=== PATIENT | male | born 1990 | race Caucasian/White ===

== ENCOUNTER 2016-06-10 03:59 | Observation (INO) | payer SELFPAY ==
[~2016-06-10] VITALS: Ht 172.7 cm; Wt 95.0 kg
[2016-06-10 04:01] VITALS: BP 135/82; PULSE 103; RESP 16; TEMP 98.8; O2SAT 98
[2016-06-10] MEDS ORDERED: SODIUM CHLOR 0.9% 1000 ML INJ 1,000 ML IV SCH (04:26)
[2016-06-10] MEDS ORDERED: SODIUM CHLORIDE 0.9% FLUSH 5 ML FLUSH IVF PRN ×2 (04:30→14:15)
[2016-06-10] MEDS ORDERED: ONDANSETRON HCL 4 MG/2 ML VIAL IVP ONE (04:30)
[2016-06-10] MEDS ORDERED: DIATRIZOATE MEGLUM/DIATRIZOATE SOD 9 ML CUP ONE (04:44)
[2016-06-10 04:58] LABS: AUTOMATED NEUTROPHIL # 11.6 TH/MM3 (1.8-7.7); BASOPHIL # 0.1 TH/MM3 (0-0.2); BASOPHIL % 0.4 % (0.0-2.0); EOSINOPHIL # 0.3 TH/MM3 (0-0.4); EOSINOPHIL % 1.9 % (0.0-4.0); HEMATOCRIT 49.5 % (39.0-51.0); HEMO FLAGS DIFF FINAL; LYMPH % 16.2 % (9.0-44.0); LYMPHOCYTE # 2.6 TH/MM3 (1.0-4.8); MEAN CELL VOLUME 82.6 FL (80.0-100.0); MEAN CORPUSCULAR HEMOGLOBIN 27.3 PG (27.0-34.0); MONO % 8.3 % (0.0-8.0); NEUT % 73.2 % (16.0-70.0); PLATELET COUNT 144 TH/MM3 (150-450); RED BLOOD COUNT 5.99 MIL/MM3 (4.50-5.90); RED CELL DISTRIBUTION WIDTH 14.3 % (11.6-17.2); WHITE BLOOD COUNT 15.9 TH/MM3 (4.0-11.0)
--- NOTE | 2016-06-10 05:21 | PD ---
HPI Chief Complaint: Abdominal Pain Time Seen by Provider: 04:26 Travel History International Travel<30 days: No Contact w/Intl Traveler<30days: No Traveled to known affect area: No History of Present Illness HPI The patient is a 25 year old male who presents to the [facility] emergency department with a history of abdominal pain around the umbilicus that began on Wednesday. The patient reports that the pain has been constant although gradually worsening with time. He reports the character or of the pain is dull. The patient reports that the pain has moved from the periumbilical area down into the right lower quadrant of the abdomen. The patient reports that he's had constipation associated with this. He last moved his bowels normally on Wednesday. He did have a small bowel movement today. He denies having any blood in his stool or black or tarry stools. He denies having any nausea or vomiting. The patient reports that he's had a diminished appetite for the last 2 days. He denies having any diarrhea. The patient denies any recent fevers, cough, congestion, neck pain, chest pain, shortness of breath, urinary symptoms , or neurologic symptoms. FOR[facility]LY [facility] Past Medical History Narrative Medical The patient's past medical history is significant for asthma. Asthma: Yes Diminished Hearing: No Tetanus Vaccination: Unknown Influenza Vaccination: No Past Surgical History Narrative Surgical The patient's past surgical history is reportedly none. Surgical History: No Previous Surgery Social History Alcohol Use: Yes ([facility]) Tobacco Use: No Substance Use: No Allergies-Medications (Allergen,Severity, Reaction): Coded Allergies: No Known Allergies (Unverified , 06/10/16) Reported Meds & Prescriptions Reported Meds & Active Scripts Active No Active Prescriptions or Reported Medications Review of Systems Except as stated in HPI: all other systems reviewed are Neg General / Constitutional: No: Fever Eyes: No: Visual changes HENT: No: Headaches Cardiovascular: No: Chest Pain or Discomfort Respiratory: No: Shortness of Breath Gastrointestinal: Positive: Abdominal Pain, Constipation, Changes in Bowel Habits, Loss of Appetite, No: Indigestion Genitourinary: No: Dysuria Musculoskeletal: No: Pain Skin: No Rash Neurologic: No: Weakness Psychiatric: No: Depression Endocrine: No: Polydipsia Hematologic/Lymphatic: No: Easy Bruising Physical Exam Narrative General: The patient is a well-developed well-nourished male in no acute distress. Head and Neck exam: Head is normocephalic atraumatic. Eyes: EOMI, pupils are equal round and reactive to light. Nose: Midline septum with pink mucous membranes Mouth: Dentition unremarkable. Moist mucus membranes. Posterior oropharynx is not erythematous. No tonsillar hypertrophy. Uvula midline. Airway patent. Neck: No palpable lymphadenopathy. No nuchal rigidity. No thyromegaly. Cardiovascular: Regular rate and rhythm without murmurs, gallops, or rubs. Lungs: Clear to auscultation bilaterally. No wheezes, rhonchi, or rales. Abdomen: Soft, with tenderness on palpation in the right upper and lower quadrant of the abdomen, however worse on the right lower quadrant. The patient has a positive psoas sign. The patient has tenderness on heel tapping, noted in his abdomen. The patient has rebound noted. Negative Hertel sign. Decreased bowel sounds are audible. Extremities: No clubbing, cyanosis, or edema. No calf tenderness on palpation. Back: No spinous process tenderness to palpation. No costovertebral angle tenderness to palpation. Neurologic Exam: Grossly nonfocal. Skin Exam: No rash noted. Intact skin that is warm and dry. Data Data Last Documented VS Vital Signs Date Time Temp Pulse Resp B/P Pulse Ox O2 Delivery O2 Flow Rate FiO2 06/10/16 06:13 16 06/10/16 06:00 98.8 106 96 Room Air 06/10/16 04:01 135/82 Orders Complete Blood Count With Diff (06/10/16 04:26) Comprehensive Metabolic Panel (06/10/16 04:26) Lipase (06/10/16 04:26) Urinalysis - C+S If Indicated (06/10/16 04:26) Ct Abd/Pel W Iv Contrast(Rout) (06/10/16 04:26) Iv Access Insert/Monitor (06/10/16 04:26) Ecg Monitoring (06/10/16 04:26) Oximetry (06/10/16 04:26) Ondansetron Inj (Zofran Inj) (06/10/16 04:30) Sodium Chlor 0.9% 1000 Ml Inj (Ns 1000 M (06/10/16 04:26) Sodium Chloride 0.9% Flush (Ns Flush) (06/10/16 04:30) C-Reactive Protein (Crp) (06/10/16 04:26) Oral Contrast - Adult (06/10/16 04:30) Diatrizoate Liq ( Gastroview Liq) (06/10/16 04:44) Morphine Inj (Morphine Inj) (06/10/16 05:30) Iohexol 350 Inj (Omnipaque 350 Inj) (06/10/16 05:54) Sodium Chlor 0.9% 1000 Ml Inj (Ns 1000 M (06/10/16 06:15) Piperacil-Tazo 3.375 Gm Premix (Zosyn 3. (06/10/16 06:15) Admit Order (Ed Use Only) (06/10/16 06:46) Labs Laboratory Tests Test 06/10/16 04:31 White Blood Count 15.9 TH/MM3 Red Blood Count 5.99 MIL/MM3 Hemoglobin 16.3 GM/DL Hematocrit 49.5 % Mean Corpuscular Volume 82.6 FL Mean Corpuscular Hemoglobin 27.3 PG Mean Corpuscular Hemoglobin 33.0 % Concent Red Cell Distribution Width 14.3 % Platelet Count 144 TH/MM3 Mean Platelet Volume 10.2 FL Neutrophils (%) (Auto) 73.2 % Lymphocytes (%) (Auto) 16.2 % Monocytes (%) (Auto) 8.3 % Eosinophils (%) (Auto) 1.9 % Basophils (%) (Auto) 0.4 % Neutrophils # (Auto) 11.6 TH/MM3 Lymphocytes # (Auto) 2.6 TH/MM3 Monocytes # (Auto) 1.3 TH/MM3 Eosinophils # (Auto) 0.3 TH/MM3 Basophils # (Auto) 0.1 TH/MM3 CBC Comment DIFF FINAL Differential Comment Sodium Level 139 MEQ/L Potassium Level 3.5 MEQ/L Chloride Level 102 MEQ/L Carbon Dioxide Level 29.4 MEQ/L Anion Gap 8 MEQ/L Blood Urea Nitrogen 14 MG/DL Creatinine 1.10 MG/DL Estimat Glomerular Filtration 82 ML/MIN Rate Random Glucose 84 MG/DL Calcium Level 8.8 MG/DL Total Bilirubin 1.5 MG/DL Aspartate Amino Transf 9 U/L (AST/SGOT) Alanine Aminotransferase 16 U/L (ALT/SGPT) Alkaline Phosphatase 55 U/L C-Reactive Protein 0.76 MG/DL Total Protein 7.5 GM/DL Albumin 4.4 GM/DL Lipase 123 U/L MDM Medical Decision Making Medical Screen Exam Complete: Yes Emergency Medical Condition: Yes Medical Record Reviewed: Yes Interpretation(s) Last Impressions Abdomen/Pelvis CT 06/10/16 0426 Signed Impressions: Service Date/Time: Friday, June 10, 2016 05:46 - CONCLUSION: 1. Mild acute appendicitis without abscess, obstruction, free fluid or free air. Ross Langford MD Differential Diagnosis Appendicitis, versus diverticulitis, versus colitis, versus kidney stone, versus pyelonephritis Narrative Course During the course of the patients emergency department visit, the patients history, examination, and differential diagnosis were reviewed with the patient. The patient had IV access obtained and blood work sent for analysis. The patient will have a CT scan of the abdomen and pelvis done. The patient was provided normal saline 1 L IV fluid bolus, Zofran 4 mg IV for nausea, morphine 4 mg IV for pain. After the patient's white count came back elevated at 15.9, the patient was given Zosyn 3.375 g IV. The patients laboratory studies were reviewed and remarkable for white count of 15.9, hemoglobin 16.3, platelets 144, neutrophils 73.2, CMP is remarkable for GFR of 82, total bilirubin 1.5, AST 9, C-reactive protein 0.76, lipase 123. Radiology studies were reviewed and remarkable for a CT scan of the abdomen and pelvis that shows mild appendicitis. A call was placed out to the general surgeon. I spoke to Dr. Austin regarding this patient's case. He did agree to admit the patient for further evaluation and treatment at this time. He plans to take the patient to the OR later today. Physician Communication Physician Communication The patient's case is discussed with Dr. Austin who did agree to admit the patient for further evaluation and treatment at this time. Diagnosis Primary Impression: Acute appendicitis Qualified Code: K35.80 - Acute appendicitis, unspecified acute appendicitis type Admitting Information Admitting Physician Requests: Admit Scripts No Active Prescriptions or Reported Meds Ashley Veronica MD Jun 10, 2016 05:21
[2016-06-10] MEDS ORDERED: MORPHINE SULFATE 4 MG/ML INJ IV PUSH ONE ×2 (05:30→08:00)
[2016-06-10 05:32] LABS: ANION GAP 8 MEQ/L (5-15); AST (GOT) 9 U/L (15-37); BICARBONATE 29.4 MEQ/L (21.0-32.0); BLOOD UREA NITROGEN 14 MG/DL (7-18); CHLORIDE 102 MEQ/L (98-107); GLOMERULAR FILTRATION RATE 82 ML/MIN (>89); POTASSIUM 3.5 MEQ/L (3.5-5.1); SODIUM (NA) 139 MEQ/L (136-145)
[2016-06-10 05:35] LABS: ALKALINE PHOSPHATASE 55 U/L (45-117); ALT (GPT) 16 U/L (12-78); TOTAL BILIRUBIN ADULT 1.5 MG/DL (0.2-1.0)
[2016-06-10] MEDS ORDERED: IOHEXOL 350 MG/ML 10 ML VIAL (for RAD DIAG) IV ONE (05:54)
[2016-06-10 06:00] VITALS: PULSE 106; RESP 18; TEMP 98.8; O2SAT 96
[2016-06-10] MEDS ORDERED: PIPERACIL-TAZO 3.375 GM PREMIX 50 ML IV ONE (06:15)
[2016-06-10] MEDS ORDERED: SODIUM CHLOR 0.9% 1000 ML INJ 1,000 ML IV ONE (06:15)
--- NOTE | 2016-06-10 06:30 | RADRPT ---
EXAM DATE/TIME: 06/10/2016 05:46 [place] COMPARISON: No previous studies available for comparison. INDICATIONS : Right lower quadrant pain. IV CONTRAST: 90 cc Omnipaque 350 (iohexol) IV ORAL CONTRAST: Partial prescribed oral contrast ingested. RADIATION DOSE: 12.92 CTDIvol (mGy) MEDICAL HISTORY : Asthma SURGICAL HISTORY : None. ENCOUNTER: Initial ACUITY: 1 day PAIN SCALE: 8/10 LOCATION: Right lower quadrant TECHNIQUE: Volumetric scanning of the abdomen and pelvis was performed. Using automated exposure control and ad justment of the mA and/or kV according to patient size, radiation dose was kept as low as reasonably achievable to obtain optimal diagnostic quality images. FINDINGS: The appendix is distended up to 15 mm in diameter and there are mild periappendiceal inflammatory juan carlos nges characteristic of a mild acute appendicitis. There is still some air present within the distal a ppendix. No abscess, obstruction, free fluid or free air. Lung bases clear. No acute findings in the liver, spleen, adrenals, kidneys or pancreas. Small hiatal hernia. No gallstones or biliary ductal dilatation. No acute bony abnormality. CONCLUSION: 1. Mild acute appendicitis without abscess, obstruction, free fluid or free air. Ross Langford MD on June 10, 2016 at 6:25 Board Certified Radiologist. This report was verified electronically.
[2016-06-10 08:00] VITALS: BP 129/77; PULSE 94; RESP 17; TEMP 98.7; O2SAT 98
[2016-06-10] MEDS ORDERED: ONDANSETRON HCL 4 MG/2 ML VIAL IV ONE (08:15)
[2016-06-10 08:25] LABS: BLOOD, URINE NEG (NEG); GLUCOSE,URINE NEG (NEG); KETONE, URINE 40 mg/dL (NEG); NITRITE,URINE NEG (NEG); URINE COLOR LIGHT-YELLOW (YELLW/STRAW)
[2016-06-10 08:27] LABS: COMMENT (UR) CULT NOT INDICATED; CULTURE IF INDICATED CULT NOT INDICATED
--- NOTE | 2016-06-10 08:45 | HHI.HP ---
HPI Service General Surgery Primary Care Physician No Primary Care Physician Admission Diagnosis Acute Appendicitis Chief Complaint: Abdominal pain History of Present Illness This is a 25 yo M who developed periumbilical abdominal pain on Wednesday which became more diffuse and severe and then yesterday became more localized in the right lower abdomen. He's had some constipation and anorexia, no nausea or vomiting. Review of Systems Constitutional: DENIES: Fever, Chills Eyes: DENIES: Eye inflammation, Eye pain Ears, nose, mouth, throat: DENIES: Sinus Pain, Toothache Respiratory: DENIES: Wheezing, Shortness of breath Cardiovascular: DENIES: Chest pain, Palpitations Gastrointestinal: COMPLAINS OF: Abdominal pain, Constipation Musculoskeletal: DENIES: Muscle aches, Stiffness Integumentary: DENIES: Pruritus, Rash Past Family Social History Past Medical History Asthma Past Surgical History None Reported Medications none Allergies: Coded Allergies: No Known Allergies (Unverified , 06/10/16) Active Ordered Medications Current Medications Medications (Trade) Dose Ordered Sig/Haris Route Start Time Stop Time Status Last Admin (NS Flush) 2 ml UNSCH PRN IVF 06/10/16 04:30 Family History noncontributory Social History No tobacco or drug use. Occ ETOH use. Physical Exam Vital Signs Vital Signs Date Time Temp Pulse Resp B/P Pulse Ox O2 Delivery O2 Flow Rate FiO2 06/10/16 06:13 16 06/10/16 06:00 98.8 106 18 96 Room Air 06/10/16 04:06 16 06/10/16 04:01 98.8 103 16 135/82 98 Physical Exam General: NAD, AAO. Appears mildly ill HEAD: NCAT ENT: PERRL, no scleral icterus LUNGS: CTAB, no rhonchi or wheezing CV: RRR ABD: soft, + rebound in RLQ, + Rovsing's sign EXT: no cyanosis or edema Laboratory Laboratory Tests Test 06/10/16 06/10/16 04:31 08:18 White Blood Count 15.9 Red Blood Count 5.99 Hemoglobin 16.3 Hematocrit 49.5 Mean Corpuscular Volume 82.6 Mean Corpuscular Hemoglobin 27.3 Mean Corpuscular Hemoglobin 33.0 Concent Red Cell Distribution Width 14.3 Platelet Count 144 Mean Platelet Volume 10.2 Neutrophils (%) (Auto) 73.2 Lymphocytes (%) (Auto) 16.2 Monocytes (%) (Auto) 8.3 Eosinophils (%) (Auto) 1.9 Basophils (%) (Auto) 0.4 Neutrophils # (Auto) 11.6 Lymphocytes # (Auto) 2.6 Monocytes # (Auto) 1.3 Eosinophils # (Auto) 0.3 Basophils # (Auto) 0.1 CBC Comment DIFF FINAL Differential Comment Sodium Level 139 Potassium Level 3.5 Chloride Level 102 Carbon Dioxide Level 29.4 Anion Gap 8 Blood Urea Nitrogen 14 Creatinine 1.10 Estimat Glomerular Filtration 82 Rate Random Glucose 84 Calcium Level 8.8 Total Bilirubin 1.5 Aspartate Amino Transf 9 (AST/SGOT) Alanine Aminotransferase 16 (ALT/SGPT) Alkaline Phosphatase 55 C-Reactive Protein 0.76 Total Protein 7.5 Albumin 4.4 Lipase 123 Urine Color LIGHT-YELLOW Urine Turbidity CLEAR Urine pH 7.0 Urine Specific Freeman 1.039 Urine Protein NEG Urine Glucose (UA) NEG Urine Ketones 40 Urine Occult Blood NEG Urine Nitrite NEG Urine Bilirubin NEG Urine Urobilinogen LESS THAN 2.0 Urine Leukocyte Esterase NEG Urine RBC 1 Urine WBC LESS THAN 1 Microscopic Urinalysis Comment CULT NOT INDICATED Result Diagram: 06/10/1643006/10/16430 Imaging Last Impressions Abdomen/Pelvis CT 06/10/16425 Signed Impressions: Service Date/Time: Friday, June 10, 2016 05:46 - CONCLUSION: 1. Mild acute appendicitis without abscess, obstruction, free fluid or free air. Ross Langford MD Assessment and Plan Assessment and Plan This is a 25 yo M with classic presentation of acute appendicitis, confirmed with CT a/p. Plan to proceed this am to OR for laparoscopic, possible open, appendectomy. I discussed details, risks, and benefits with the patient and his father and he desires to proceed. He has already received Zosyn. NormanAdriel MD Jun 10, 2016 08:45
[2016-06-10] MEDS ORDERED: PROPOFOL 200 MG/20 ML AMP IV ONE (08:53)
[2016-06-10] MEDS ORDERED: NEOSTIGMINE 3 MG/3 ML SYR IV ONE (08:53)
[2016-06-10] MEDS ORDERED: ONDANSETRON HCL 4 MG/2 ML VIAL IV PUSH ONE (08:53)
[2016-06-10 10:21] VITALS: BP 131/78; PULSE 89; RESP 16; O2SAT 98
[2016-06-10 11:51] VITALS: BP 128/77
[2016-06-10] MEDS ORDERED: DEXAMETHASONE SOD PHOS 4 MG/ML VIAL ONE (13:17)
[2016-06-10] MEDS ORDERED: FAMOTIDINE 20 MG/2 ML VIAL ONE (13:17)
[2016-06-10] MEDS ORDERED: MIDAZOLAM HCL 2 MG/2 ML VIAL ONE (13:17)
[2016-06-10] MEDS ORDERED: BUPIVACAINE/EPINEPHRINE 0.5% PF 30 ML VIAL INFIL ONE (13:47)
[2016-06-10] MEDS ORDERED: ACETAMINOPHEN 1000 MG/100 ML VIAL IV ONE (13:51)
[2016-06-10] MEDS ORDERED: DICLOFENAC SODIUM 37.5 MG/ML VIAL IV PUSH ONE (13:52)
[2016-06-10] MEDS ORDERED: PIPERACIL-TAZO 3.375 GM PREMIX 50 ML IV SCH (14:00)
[2016-06-10] MEDS ORDERED: oxyCODONE/ACETAMINOPHEN 5 MG/325 MG TAB PO PRN (14:15)
[2016-06-10] MEDS ORDERED: oxyCODONE/ACETAMINOPHEN 10 MG/325 MG TAB PO PRN (14:15)
[2016-06-10] MEDS ORDERED: Post-op Orders (for Pharmacy) MISC XX ONE (14:15)
[2016-06-10] MEDS ORDERED: ONDANSETRON HCL 4 MG/2 ML VIAL IV PRN (14:15)
[2016-06-10] MEDS ORDERED: MORPHINE SULFATE 4 MG/ML INJ IV PRN (14:15)
[2016-06-10] MEDS ORDERED: NALOXONE HCL 0.4 MG/ML AMP IV PRN (14:15)
[2016-06-10] MEDS ORDERED: OXYC1TAB63 PO (14:17)
--- NOTE | 2016-06-10 14:21 | PD.OP ---
cc: Adriel Austin MD Operative Report Date of Surgery: Jun 10, 2016 Preoperative Diagnosis: (1) Acute appendicitis Postoperative Diagnosis: (1) Acute appendicitis Procedure: laparoscopic appendectomy Anesthesia: GETA Surgeon: Adriel Austin Carton Stamper(s): Haim DUTTA Operation and Findings: EBL: 5 cc Complications: None apparent Operative findings: Inflamed and distended appendix with a minimal amount of exudative material. Procedure in detail: The patient was taken to the operating room placed in the supine position with left arm tucked. General endotracheal anesthesia was induced and the abdomen was prepped and draped in usual sterile fashion. Surgical timeout was performed to verify correct patient procedure and site. Perioperative antibiotics were administered as necessary. Local anesthetic was injected in the skin and subcutaneous tissue at the inferior umbilicus and a 5 mm incision made. Using the 5 mm Optiview trocar with laparoscope the abdomen was directly entered. Was then insufflated to 15 mmHg with CO2 gas which the patient tolerated well. The patient was then placed in Trendelenburg position and turned slightly to the left. A 12 mm port was placed under laparoscopic visualization in the suprapubic area and a 5 mm port in the lower midline. Attention was turned to the right lower quadrant and the appendix was distended and inflamed. It was not ruptured. There was a minimal amount of exudative material surrounding it. The mesoappendix was taken down with the Harmonic scalpel. Two #1 PDS Endoloops were placed at the base the appendix and the appendix transected with Harmonic scalpel. It was then removed using an Endo Catch bag. The appendiceal stump was intact with no leakage. The right lower quadrant pelvis were copiously irrigated and there was a small amount of exudative cloudy fluid removed. The fascia at the 12 mm port site was closed with a single 0 Vicryl suture. Skin closed with subcuticular Monocryl as well as Dermabond. The patient tolerated the procedure well was extubated and taken to PACU in stable condition. Adriel Austin MD Jun 10, 2016 14:21
[2016-06-10] MEDS ORDERED: fentaNYL CITRATE 250 MCG/5 ML AMP ONE (14:36)
[2016-06-10] MEDS ORDERED: D5-1/2 NS + KCL 20 MEQ INJ 1,000 ML IV SCH (15:00)
[2016-06-10] MEDS ORDERED: *morphine SULFATE 8 MG/ML PERIprocedure ONLY ONE (15:02)
[2016-06-10 16:21] VITALS: BP 134/64; PULSE 99; RESP 16; TEMP 98.7; O2SAT 96
[2016-06-10] MEDS ORDERED: SODIUM CHLORIDE 0.9% FLUSH 5 ML FLUSH IVF SCH (21:00)
== END 2016-06-10 17:50 | disposition home or self-care (01) ==
LOC: NEPE 03:59 → INTOOBSV 06:47 → NEDA 06:47 → HPAC 11:55
PROVIDERS: ADMIT Surgery; ATTEND Surgery
DX: K35.80 Unspecified acute appendicitis (principal); K59.00 Constipation, unspecified; J45.909 Unspecified asthma, uncomplicated; D72.829 Elevated white blood cell count, unspecified; R63.0 Anorexia
CPT/HCPCS: 00840; 44970; 74177; 80053; 81001; 83690; 85025; 86140; 88304; 96361; 96365; 96375; 99285; G0378; J0131; J1100; J1130; J2250; J2270; J2405; J2543; J2710; J3010; J7030; Q9963; Q9967

== ENCOUNTER 2017-05-11 14:27 | Emergency (ER) | payer SELFPAY ==
[~2017-05-11] VITALS: Ht 171.4 cm; Wt 102.3 kg
[~2017-05-11 14:27] MED LIST: OXYC1TAB63 PO
[2017-05-11] MEDS ORDERED: IOHEXOL 350 MG/ML 10 ML VIAL (for RAD DIAG) IVCONTRAST ONE (14:28)
[2017-05-11 14:29] VITALS: BP 100/60; PULSE 127; RESP 20; TEMP 98.9; O2SAT 98
[2017-05-11 16:01] LABS: BILIRUBIN, URINE NEG (NEG); BLOOD, URINE NEG (NEG); GLUCOSE,URINE NEG (NEG); KETONE, URINE NEG (NEG); MUCUS URINE MOD /lpf (OCC); NITRITE,URINE NEG (NEG); PH, URINE 5.5 (5.0-8.5); SQUAMOUS EPITHELIAL CELL URINE <1 /hpf (0-5); URINE COLOR YELLOW (YELLW/STRAW); URINE LEUKOCYTE ESTERASE NEG (NEG)
[2017-05-11 16:08] LABS: AUTOMATED NEUTROPHIL # 10.6 TH/MM3 (1.8-7.7); BASOPHIL % 0.2 % (0.0-2.0); EOSINOPHIL # 0.1 TH/MM3 (0-0.4); EOSINOPHIL % 1.1 % (0.0-4.0); HEMATOCRIT 48.7 % (39.0-51.0); HEMOGLOBIN 16.5 GM/DL (13.0-17.0); LYMPH % 5.1 % (9.0-44.0); LYMPHOCYTE # 0.6 TH/MM3 (1.0-4.8); MEAN CELL VOLUME 81.6 FL (80.0-100.0); MEAN CORPUSCULAR HEMOGLOBIN 27.7 PG (27.0-34.0); MONO % 5.7 % (0.0-8.0); MONOCYTE # 0.7 TH/MM3 (0-0.9); NEUT % 87.9 % (16.0-70.0); PLATELET COUNT 144 TH/MM3 (150-450); RED BLOOD COUNT 5.97 MIL/MM3 (4.50-5.90); RED CELL DISTRIBUTION WIDTH 13.8 % (11.6-17.2)
[2017-05-11 16:18] LABS: ALKALINE PHOSPHATASE 46 U/L (45-117); TOTAL BILIRUBIN ADULT 1.4 MG/DL (0.2-1.0); TOTAL PROTEIN 7.6 GM/DL (6.4-8.2)
[2017-05-11 16:35] LABS: ALBUMIN 4.3 GM/DL (3.4-5.0); ALT (GPT) 37 U/L (12-78); AST (GOT) 19 U/L (15-37); BICARBONATE 27.4 MEQ/L (21.0-32.0); BLOOD UREA NITROGEN 21 MG/DL (7-18); CALCIUM 8.6 MG/DL (8.5-10.1); CHLORIDE 106 MEQ/L (98-107); CREATININE 1.19 MG/DL (0.60-1.30); GLOMERULAR FILTRATION RATE 74 ML/MIN (>89); GLUCOSE,RANDOM 116 MG/DL (74-106); LIPASE 111 U/L (73-393); SODIUM (NA) 140 MEQ/L (136-145)
--- NOTE | 2017-05-11 17:01 | PD ---
HPI Chief Complaint: Abdominal Pain Time Seen by Provider: 16:47 Travel History International Travel<30 days: No Contact w/Intl Traveler<30days: No Traveled to known affect area: No History of Present Illness HPI 26 years old male complaining abdominal pain, nausea vomiting diarrhea. Patient states that the symptoms started this morning. Patient denies any headache. Patient denies any chest pain or shortness of breath. Patient states the pain cramping pain localized upper abdomen. Patient denies any pain radiation. Patient denies any dysuria or frequency. Patient status post appendectomy in the past. Patient denies fever chills. PFSH Past Medical History Asthma: Yes Diminished Hearing: No Immunizations Current: Yes Tetanus Vaccination: Unknown Influenza Vaccination: No Past Surgical History Appendectomy: Yes Social History Alcohol Use: Yes (OCC) Tobacco Use: No Substance Use: No Allergies-Medications (Allergen,Severity, Reaction): Coded Allergies: No Known Allergies (Unverified Adverse Reaction, Unknown, 05/11/17) Reported Meds & Prescriptions Reported Meds & Active Scripts Active No Active Prescriptions or Reported Medications Review of Systems General / Constitutional: No: Fever Eyes: No: Visual changes HENT: No: Headaches Cardiovascular: No: Chest Pain or Discomfort Respiratory: No: Shortness of Breath Gastrointestinal: Positive: Nausea, Vomiting, Diarrhea, Abdominal Pain Genitourinary: No: Dysuria Musculoskeletal: No: Pain Skin: No Rash Neurologic: No: Weakness Psychiatric: No: Depression Endocrine: No: Polydipsia Hematologic/Lymphatic: No: Easy Bruising Physical Exam Narrative GENERAL: Well-nourished, well-developed patient. SKIN: Focused skin assessment warm/dry. HEAD: Normocephalic. EYES: No scleral icterus. No injection or drainage. NECK: Supple, trachea midline. No JVD or lymphadenopathy. CARDIOVASCULAR: Regular rate and rhythm without murmurs, gallops, or rubs. RESPIRATORY: Breath sounds equal bilaterally. No accessory muscle use. GASTROINTESTINAL: Abdomen soft, nondistended. Mild tenderness on palpation epigastric and upper abdomen. No rebound tenderness. No mass. MUSCULOSKELETAL: No cyanosis, or edema. BACK: Nontender without obvious deformity. No CVA tenderness. Neurologic exam normal. Data Data Last Documented VS Vital Signs Date Time Temp Pulse Resp B/P (MAP) Pulse Ox O2 Delivery O2 Flow Rate FiO2 05/11/17 14:29 98.9 127 20 100/60 (73) 98 Orders Orders Complete Blood Count With Diff (05/11/17 14:47) Comprehensive Metabolic Panel (05/11/17 14:47) Lipase (05/11/17 14:47) Urinalysis - C+S If Indicated (05/11/17 14:47) Ct Abd/Pel W Iv Contrast(Rout) (05/11/17 16:55) Labs Laboratory Tests Test 05/11/17 15:43 White Blood Count 12.0 TH/MM3 Red Blood Count 5.97 MIL/MM3 Hemoglobin 16.5 GM/DL Hematocrit 48.7 % Mean Corpuscular Volume 81.6 FL Mean Corpuscular Hemoglobin 27.7 PG Mean Corpuscular Hemoglobin Concent 34.0 % Red Cell Distribution Width 13.8 % Platelet Count 144 TH/MM3 Mean Platelet Volume 10.0 FL Neutrophils (%) (Auto) 87.9 % Lymphocytes (%) (Auto) 5.1 % Monocytes (%) (Auto) 5.7 % Eosinophils (%) (Auto) 1.1 % Basophils (%) (Auto) 0.2 % Neutrophils # (Auto) 10.6 TH/MM3 Lymphocytes # (Auto) 0.6 TH/MM3 Monocytes # (Auto) 0.7 TH/MM3 Eosinophils # (Auto) 0.1 TH/MM3 Basophils # (Auto) 0.0 TH/MM3 CBC Comment DIFF FINAL Differential Comment Urine Color YELLOW Urine Turbidity CLEAR Urine pH 5.5 Urine Specific Ethel 1.027 Urine Protein TRACE mg/dL Urine Glucose (UA) NEG mg/dL Urine Ketones NEG mg/dL Urine Occult Blood NEG Urine Nitrite NEG Urine Bilirubin NEG Urine Urobilinogen LESS THAN 2.0 MG/DL Urine Leukocyte Esterase NEG Urine RBC 1 /hpf Urine WBC LESS THAN 1 /hpf Urine Squamous Epithelial Cells <1 /hpf Urine Mucus MOD /lpf Microscopic Urinalysis Comment CULT NOT INDICATED Blood Urea Nitrogen 21 MG/DL Creatinine 1.19 MG/DL Random Glucose 116 MG/DL Total Protein 7.6 GM/DL Albumin 4.3 GM/DL Calcium Level 8.6 MG/DL Alkaline Phosphatase 46 U/L Aspartate Amino Transf (AST/SGOT) 19 U/L Alanine Aminotransferase (ALT/SGPT) 37 U/L Total Bilirubin 1.4 MG/DL Sodium Level 140 MEQ/L Potassium Level 4.2 MEQ/L Chloride Level 106 MEQ/L Carbon Dioxide Level 27.4 MEQ/L Anion Gap 7 MEQ/L Estimat Glomerular Filtration Rate 74 ML/MIN Lipase 111 U/L MDM Medical Decision Making Medical Screen Exam Complete: Yes Emergency Medical Condition: Yes Differential Diagnosis Differential diagnosis including gastritis, PUD, pancreatitis, cholecystitis, colitis, UTI, pyelonephritis. Narrative Course 26 years old male with upper abdominal pain, nausea vomiting diarrhea. Scripts No Active Prescriptions or Reported Meds Shmuel Irvin MD May 11, 2017 17:01
--- NOTE | 2017-05-11 17:57 | PD ---
Physical Exam Narrative Received sign out from previous team to follow up with CT scan and reevaluate. 26yo M with epigastric abdominal pain, vomiting and diarrhea for 1 day. Labs reviewed, WBC 12,000. Mild thrombocytopenia but unchanged from prior. BUN elevated at 21. Creatinine normal at 1.19. Bilirubin elevated at 1.4. Lipase normal. UA showed WBC <1. Culture not indicated. CT a/p showed mild fatty infiltration of liver. No acute abnormality. Pt given zofran, pantoprazole and NS IVF. Abdomen is soft, NT/ND. Pt feels better and tolerating PO. Return precautions given. Data Data Last Documented VS Vital Signs Date Time Temp Pulse Resp B/P (MAP) Pulse Ox O2 Delivery O2 Flow Rate FiO2 05/11/17 14:29 98.9 127 20 100/60 (73) 98 Orders Orders Complete Blood Count With Diff (05/11/17 14:47) Comprehensive Metabolic Panel (05/11/17 14:47) Lipase (05/11/17 14:47) Urinalysis - C+S If Indicated (05/11/17 14:47) Ct Abd/Pel W Iv Contrast(Rout) (05/11/17 16:55) Sodium Chlor 0.9% 1000 Ml Inj (Ns 1000 M (05/11/17 18:00) Ondansetron Inj (Zofran Inj) (05/11/17 18:00) Pantoprazole Inj (Protonix Inj) (05/11/17 18:00) Iohexol 350 Inj (Omnipaque 350 Inj) (05/11/17 14:28) Labs Laboratory Tests Test 05/11/17 15:43 White Blood Count 12.0 TH/MM3 Red Blood Count 5.97 MIL/MM3 Hemoglobin 16.5 GM/DL Hematocrit 48.7 % Mean Corpuscular Volume 81.6 FL Mean Corpuscular Hemoglobin 27.7 PG Mean Corpuscular Hemoglobin Concent 34.0 % Red Cell Distribution Width 13.8 % Platelet Count 144 TH/MM3 Mean Platelet Volume 10.0 FL Neutrophils (%) (Auto) 87.9 % Lymphocytes (%) (Auto) 5.1 % Monocytes (%) (Auto) 5.7 % Eosinophils (%) (Auto) 1.1 % Basophils (%) (Auto) 0.2 % Neutrophils # (Auto) 10.6 TH/MM3 Lymphocytes # (Auto) 0.6 TH/MM3 Monocytes # (Auto) 0.7 TH/MM3 Eosinophils # (Auto) 0.1 TH/MM3 Basophils # (Auto) 0.0 TH/MM3 CBC Comment DIFF FINAL Differential Comment Urine Color YELLOW Urine Turbidity CLEAR Urine pH 5.5 Urine Specific [place] 1.027 Urine Protein TRACE mg/dL Urine Glucose (UA) NEG mg/dL Urine Ketones NEG mg/dL Urine Occult Blood NEG Urine Nitrite NEG Urine Bilirubin NEG Urine Urobilinogen LESS THAN 2.0 MG/DL Urine Leukocyte Esterase NEG Urine RBC 1 /hpf Urine WBC LESS THAN 1 /hpf Urine Squamous Epithelial Cells <1 /hpf Urine Mucus MOD /lpf Microscopic Urinalysis Comment CULT NOT INDICATED Blood Urea Nitrogen 21 MG/DL Creatinine 1.19 MG/DL Random Glucose 116 MG/DL Total Protein 7.6 GM/DL Albumin 4.3 GM/DL Calcium Level 8.6 MG/DL Alkaline Phosphatase 46 U/L Aspartate Amino Transf (AST/SGOT) 19 U/L Alanine Aminotransferase (ALT/SGPT) 37 U/L Total Bilirubin 1.4 MG/DL Sodium Level 140 MEQ/L Potassium Level 4.2 MEQ/L Chloride Level 106 MEQ/L Carbon Dioxide Level 27.4 MEQ/L Anion Gap 7 MEQ/L Estimat Glomerular Filtration Rate 74 ML/MIN Lipase 111 U/L MDM Supervised Visit with ARIAN: No Diagnosis Primary Impression: Gastroenteritis Patient Instructions: General Instructions Departure Forms: Tests/Procedures, Work Release Enter return to work date: May 12, 2017 Additional Instruction: Please follow up with your primary care physician in 2-3 days. Return to the ED if symptoms worsen. Med/Other Pt SpecificInfo: Prescription(s) given Scripts Ondansetron Odt (Zofran Odt) 4 Mg Tab 4 MG SL Q12HR Y for Nausea/Vomiting, #6 TAB 0 Refills Prov: HernandezJazmine DO 05/11/17 Disposition: 01 DISCHARGE HOME Condition: Stable Jazmine Hernandez DO May 11, 2017 17:57
[2017-05-11] MEDS ORDERED: SODIUM CHLOR 0.9% 1000 ML INJ 1,000 ML IV ONE (18:00)
[2017-05-11] MEDS ORDERED: PANTOPRAZOLE SODIUM 40 MG VIAL IV PUSH ONE (18:00)
[2017-05-11] MEDS ORDERED: ONDANSETRON HCL 4 MG/2 ML VIAL IV PUSH ONE (18:00)
--- NOTE | 2017-05-11 18:50 | RADRPT ---
EXAM DATE/TIME: 05/11/2017 18:35 [place] COMPARISON: CT ABDOMEN & PELVIS W CONTRAST, June 10, 2016, 5:46. INDICATIONS : Diffuse lower pain for one day. IV CONTRAST: 96 cc Omnipaque 350 (iohexol) IV ORAL CONTRAST: No oral contrast ingested. RADIATION DOSE: 15.64 CTDIvol (mGy) MEDICAL HISTORY : None SURGICAL HISTORY : Appendectomy. ENCOUNTER: Initial ACUITY: 1 day PAIN SCALE: 8/10 LOCATION: Bilateral lower quadrant TECHNIQUE: Volumetric scanning of the abdomen and pelvis was performed. Using automated exposure control and ad justment of the mA and/or kV according to patient size, radiation dose was kept as low as reasonably achievable to obtain optimal diagnostic quality images. DICOM format image data is available electro nically for review and comparison. FINDINGS: LOWER LUNGS: The visualized lower lungs are clear. LIVER: Mild fatty infiltration of the liver is noted. No focal mass is noted. There is no dilation of the bi liary tree. No calcified gallstones. SPLEEN: Normal size without lesion. PANCREAS: Within normal limits. KIDNEYS: Normal in size and shape. There is no mass, stone or hydronephrosis. ADRENAL GLANDS: Within normal limits. VASCULAR: There is no aortic aneurysm. BOWEL/MESENTERY: The stomach, small bowel, and colon demonstrate no acute abnormality. There is no free intraperitone al air or fluid. ABDOMINAL WALL: Within normal limits. RETROPERITONEUM: There is no lymphadenopathy. BLADDER: No wall thickening or mass. REPRODUCTIVE: Within normal limits. INGUINAL: There is no lymphadenopathy or hernia. MUSCULOSKELETAL: Within normal limits for patient age. CONCLUSION: Mild fatty infiltration of the liver. Trent Hutchinson MD on May 11, 2017 at 18:45 Board Certified Radiologist. This report was verified electronically.
[2017-05-11] MEDS ORDERED: ZOFR4TAB3 SL (19:14)
== END 2017-05-11 20:28 | disposition home or self-care (01) ==
LOC: NEPD 14:27
DX: K52.9 Noninfective gastroenteritis and colitis, unspecified (principal); K76.0 Fatty (change of) liver, not elsewhere classified
CPT/HCPCS: 74177; 80053; 81001; 83690; 85025; 96374; 96375; 99285; C9113; J2405; J7030; Q9967